=== PATIENT | male | born 1970 | race Two or more races ===

== ENCOUNTER 2020-12-03 08:41 | Day surgery (SDC) | payer OTHER ==
[~2020-12-03 08:41] MED LIST: FORTAMET1000 MG PO; LANTUS; LOSARTAN POTASS25 MG PO
[2020-12-03] MEDS ORDERED: PERCOCET 5-3251 EACH PO (14:34)
[2020-12-03] MEDS ORDERED: NEURONTIN300 MG PO (14:35)
== END 2020-12-03 19:40 | disposition home or self-care (01) ==
LOC: CIR.AMB 08:41
PROVIDERS: ATTEND Surgery
DX: N48.6 Induration penis plastica (principal); Z20.822 Contact with and (suspected) exposure to COVID-19